=== PATIENT | male | born 1970 | race Caucasian/White ===

== ENCOUNTER 2021-05-13 15:43 | Inpatient (IN) ==
[2021-05-13] MEDS ORDERED: Naloxone 0.4 MG/ML INJ IVP PRN (17:03)
[2021-05-13] MEDS ORDERED: Ondansetron 4 MG/2 ML VIAL IVP PRN (17:03)
[2021-05-13] MEDS ORDERED: D5% in Water 1,000 ML IVC SCH ×2 (17:15→17:30)
[2021-05-13] MEDS: Piperacillin/Tazobactam 3.375 GM in 0.9 % Sodium Chloride Mini Bag 100 ML IVPB SCH (17:39)
[2021-05-13] MEDS ORDERED: 0.9 % Sodium Chloride 1,000 ML IVC ONE (17:45)
[2021-05-13] MEDS ORDERED: *HR* Heparin 5,000 UNIT/ML VIAL SQ SCH (18:45)
[2021-05-13 19:08] LABS: BUN/Creatinine Ratio 25 (6-26); Blood Urea Nitrogen 33 mg/dL (6-20); Calcium 7.7 mg/dL (8.6-10.3); Carbon Dioxide 15 mEq/L (23-29); Chloride 130 mEq/L (98-107); Glucose 280 mg/dL (70-105); Magnesium 1.9 mg/dL (1.6-2.6); Osmolality,Calculated 335 (280-300); Phosphorous 2.6 mg/dL (2.7-4.5); Potassium 3.1 mEq/L (3.5-5.1); Sodium 154 mEq/L (136-145); eGFR For African Americans > 60 (> 60); eGFR For Non-African Americans 57 (> 60)
[2021-05-13] MEDS ORDERED: Calcium Gluconate 1gm/50mL 1 GM/50 ML BAG IVPB ONE (20:01)
[2021-05-13] MEDS: D5% in Water 1,000 ML IVC SCH (20:12)
[2021-05-13] MEDS ORDERED: *HR* Atropine Sulfate 1 MG/10 ML SYRINGE IVP ONE (20:13)
[2021-05-13 22:46] LABS: Hematocrit 19.9 % (37.5-50.1); Immature Platelets 1.9 % (1.1-6.1); Mean Corpuscular HGB Conc 28.1 g/dL (31.6-35.5); Mean Corpuscular Hemoglobin 28.3 pg (28.0-33.3); Mean Corpuscular Volume 100.5 fL (83.0-100.0); Mean Platelet Volume 11.1 fL (9.4-12.4); Red Blood Count 1.98 M/mcL (4.19-5.50); Red Cell Distribution Width 15.2 % (11.5-14.5); White Blood Count 1.7 K/mcL (4.3-11.1)
[2021-05-13] MEDS ORDERED: Albumin 25% 25gram/100mL 25 GM/100 ML IV.SOLN IVPB ONE (22:51)
[2021-05-13] MEDS ORDERED: D5% in 0.45% NACL 1,000 ML IVC SCH (23:00)
[2021-05-13 23:10] LABS: Platelet Count 59 K/mcL (140-400)
[2021-05-13 23:12] LABS: Hemoglobin 5.6 g/dL (12.9-16.9)
[2021-05-13 23:19] LABS: Anisocytosis 1+ (Not Present); Hypochromasia Present (Not Present); Lymphocytes # 0.3 K/mcL (0.6-4.6); Neutrophils # 1.4 K/mcL (1.6-8.9); Platelet Estimate Decreased (Normal)
[2021-05-14 00:18] LABS: INR 1.6; Prothrombin Time 18.1 Seconds (9.4-12.1)
[2021-05-14 00:58] LABS: Albumin 2.4 g/dL (3.5-5.7); Albumin/Globulin Ratio 0.7 (1.1-2.2); Bilirubin,Direct 0.6 mg/dL (0.0-0.2); Bilirubin,Indirect 1.4 mg/dL (0.0-1.0); Globulin 3.6 g/dL (2.4-3.5); Thyroid Stimulating Hormone 0.424 mcIU/mL (0.340-5.600)
[2021-05-14] MEDS ORDERED: 0.9 % Sodium Chloride 250 ML ONE ×3 (01:00→12:32)
[2021-05-14] MEDS: Piperacillin/Tazobactam 3.375 GM in 0.9 % Sodium Chloride Mini Bag 100 ML IVPB SCH ×3 (03:41→20:17)
[2021-05-14 05:06] LABS: Hematocrit 22.4 % (37.5-50.1); Hemoglobin 6.5 g/dL (12.9-16.9); Immature Granulocytes % 0.8 % (0-4); Lymphocytes # 0.3 K/mcL (0.6-4.6); Lymphocytes % 12.1 %; Mean Corpuscular Hemoglobin 28.4 pg (28.0-33.3); Mean Corpuscular Volume 97.8 fL (83.0-100.0); Mean Platelet Volume 10.5 fL (9.4-12.4); Monocytes # 0.1 K/mcL (0.0-1.3); Monocytes % 2.3 %; Neutrophils # 2.2 K/mcL (1.6-8.9); Red Blood Count 2.29 M/mcL (4.19-5.50); Red Cell Distribution Width 14.6 % (11.5-14.5); Segmented Neutrophils % 84.8 %; White Blood Count 2.6 K/mcL (4.3-11.1)
[2021-05-14 05:07] LABS: Platelet Count 74 K/mcL (140-400)
[2021-05-14 05:27] LABS: BUN/Creatinine Ratio 25 (6-26); Blood Urea Nitrogen 30 mg/dL (6-20); Calcium 7.9 mg/dL (8.6-10.3); Carbon Dioxide 16 mEq/L (23-29); Chloride 134 mEq/L (98-107); Glucose 182 mg/dL (70-105); Iron 54 mcg/dL (65-175); Osmolality,Calculated 331 (280-300); Phosphorous 2.7 mg/dL (2.7-4.5); Potassium 4.1 mEq/L (3.5-5.1); Sodium 155 mEq/L (136-145); eGFR For African Americans > 60 (> 60); eGFR For Non-African Americans > 60 (> 60)
[2021-05-14 05:36] LABS: % Iron Saturation 35 % (20-55); Transferrin 109 mg/dL (203-362)
[2021-05-14 05:44] LABS: Ferritin 460 ng/mL (20-250)
[2021-05-14 05:54] LABS: Folate > 22.3 ng/mL (3.0-16.0); Vitamin B12 275 pg/mL (250-1100)
[2021-05-14] MEDS: Albumin 25% 25gram/100mL 25 GM/100 ML IV.SOLN IVPB SCH ×4 (08:19→23:10)
[2021-05-14] MEDS: Pantoprazole 40 MG VIAL IVP SCH ×2 (09:47→16:10)
[2021-05-14] MEDS: D5% in Water 1,000 ML IVC SCH ×2 (09:53→16:10)
[2021-05-14 10:10] LABS: Hemoglobin 6.8 g/dL (12.9-16.9)
[2021-05-14 10:12] LABS: Hematocrit 22.7 % (37.5-50.1); Immature Platelets 2.6 % (1.1-6.1); Mean Corpuscular Hemoglobin 28.7 pg (28.0-33.3); Mean Corpuscular Volume 95.8 fL (83.0-100.0); Mean Platelet Volume 10.7 fL (9.4-12.4); Red Blood Count 2.37 M/mcL (4.19-5.50); Red Cell Distribution Width 14.8 % (11.5-14.5); White Blood Count 2.6 K/mcL (4.3-11.1)
[2021-05-14] MEDS ORDERED: Lidocaine -MPF 2% 5 ML VIAL ONE (11:06)
[2021-05-14] MEDS ORDERED: Cyanocobalamin (B-12) 1,000 MCG/ML VIAL IM ONE (14:00)
[2021-05-14 16:53] LABS: Hemoglobin 6.6 g/dL (12.9-16.9); Mean Corpuscular Volume 96.9 fL (83.0-100.0); Red Cell Distribution Width 15.9 % (11.5-14.5)
[2021-05-14 16:55] LABS: Hematocrit 22.2 % (37.5-50.1); Immature Granulocytes % 1.4 % (0-4); Immature Platelets 2.7 % (1.1-6.1); Lymphocytes # 0.3 K/mcL (0.6-4.6); Lymphocytes % 11.8 %; Mean Corpuscular HGB Conc 29.7 g/dL (31.6-35.5); Mean Corpuscular Hemoglobin 28.8 pg (28.0-33.3); Mean Platelet Volume 10.2 fL (9.4-12.4); Monocytes # 0.1 K/mcL (0.0-1.3); Monocytes % 3.3 %; Neutrophils # 1.8 K/mcL (1.6-8.9); Nucleated Red Blood Cells 0.9 /100 WBC (0); Platelet Count 60 K/mcL (140-400); Red Blood Count 2.29 M/mcL (4.19-5.50); Segmented Neutrophils % 83.5 %; White Blood Count 2.1 K/mcL (4.3-11.1)
[2021-05-14] MEDS ORDERED: Lidocaine -MPF 1% 5 ML AMPUL INFILT ONE (18:02)
[2021-05-14] MEDS: Dexamethasone Sodium Phos/PF 10 MG/ML VIAL IVP SCH (20:16)
[2021-05-14 22:14] LABS: Hematocrit 26.5 % (37.5-50.1); Hemoglobin 8.1 g/dL (12.9-16.9); Immature Platelets 3.8 % (1.1-6.1); Mean Corpuscular HGB Conc 30.6 g/dL (31.6-35.5); Mean Corpuscular Hemoglobin 28.8 pg (28.0-33.3); Mean Corpuscular Volume 94.3 fL (83.0-100.0); Mean Platelet Volume 11.2 fL (9.4-12.4); Red Blood Count 2.81 M/mcL (4.19-5.50); White Blood Count 2.5 K/mcL (4.3-11.1)
[2021-05-15] MEDS: Dexamethasone Sodium Phos/PF 10 MG/ML VIAL IVP SCH ×4 (01:02→20:30)
[2021-05-15 03:06] LABS: BUN/Creatinine Ratio 28 (6-26); Blood Urea Nitrogen 30 mg/dL (6-20); Calcium 7.2 mg/dL (8.6-10.3); Carbon Dioxide 12 mEq/L (23-29); Chloride 122 mEq/L (98-107); Glucose 370 mg/dL (70-105); Osmolality,Calculated 317 (280-300); Potassium 3.5 mEq/L (3.5-5.1); Sodium 143 mEq/L (136-145); eGFR For African Americans > 60 (> 60); eGFR For Non-African Americans > 60 (> 60)
[2021-05-15 03:53] LABS: Hemoglobin 9.2 g/dL (12.9-16.9)
[2021-05-15 03:56] LABS: Hematocrit 30.1 % (37.5-50.1); Immature Granulocytes % 2.4 % (0-4); Immature Platelets 4.5 % (1.1-6.1); Lymphocytes # 0.3 K/mcL (0.6-4.6); Mean Corpuscular HGB Conc 30.6 g/dL (31.6-35.5); Mean Corpuscular Hemoglobin 28.6 pg (28.0-33.3); Mean Corpuscular Volume 93.5 fL (83.0-100.0); Mean Platelet Volume 11.5 fL (9.4-12.4); Monocytes # 0.1 K/mcL (0.0-1.3); Monocytes % 2.1 %; Neutrophils # 2.5 K/mcL (1.6-8.9); Red Blood Count 3.22 M/mcL (4.19-5.50); Segmented Neutrophils % 86.5 %; White Blood Count 2.9 K/mcL (4.3-11.1)
[2021-05-15 04:03] LABS: Platelet Count 68 K/mcL (140-400)
[2021-05-15 04:27] LABS: Alanine Aminotransferase 8 Units/L (7-52); Albumin 3.2 g/dL (3.5-5.7); Albumin/Globulin Ratio 1.1 (1.1-2.2); Alkaline Phosphatase 35 Units/L (34-104); Aspartate Amino Transferase 13 Units/L (13-39); BUN/Creatinine Ratio 30 (6-26); Bilirubin,Total 2.5 mg/dL (0.3-1.0); Blood Urea Nitrogen 33 mg/dL (6-20); Calcium 8.3 mg/dL (8.6-10.3); Carbon Dioxide 14 mEq/L (23-29); Chloride 129 mEq/L (98-107); Globulin 2.9 g/dL (2.4-3.5); Glucose 158 mg/dL (70-105); Osmolality,Calculated 325 (280-300); Phosphorous 3.5 mg/dL (2.7-4.5); Potassium 3.6 mEq/L (3.5-5.1); Sodium 152 mEq/L (136-145); Total Protein 6.1 g/dL (6.4-8.9); eGFR For African Americans > 60 (> 60); eGFR For Non-African Americans > 60 (> 60)
[2021-05-15] MEDS: Piperacillin/Tazobactam 3.375 GM in 0.9 % Sodium Chloride Mini Bag 100 ML IVPB SCH ×3 (04:41→20:29)
[2021-05-15] MEDS: Albumin 25% 25gram/100mL 25 GM/100 ML IV.SOLN IVPB SCH (06:02)
[2021-05-15] MEDS: Pantoprazole 40 MG VIAL IVP SCH ×2 (06:04→18:10)
[2021-05-15] MEDS ORDERED: Cyanocobalamin (B-12) 1,000 MCG/ML VIAL SQ ONE (09:58)
[2021-05-15] MEDS: D5% in Water 1,000 ML IVC SCH (12:56)
[2021-05-15 14:16] LABS: Hepatitis B Surface Antigen Nonreactive (Nonreactive)
[2021-05-15 14:48] LABS: Hepatitis B Core IgM Nonreactive (Nonreactive); Hepatitis C Virus Antibody Nonreactive (Nonreactive)
[2021-05-15 14:49] LABS: Hepatitis A Antibody IgM Nonreactive (Nonreactive)
[2021-05-15 17:57] LABS: Hematocrit 31.9 % (37.5-50.1); Immature Platelets 3.9 % (1.1-6.1); Mean Corpuscular HGB Conc 31.3 g/dL (31.6-35.5); Mean Corpuscular Volume 92.5 fL (83.0-100.0); Mean Platelet Volume 11.3 fL (9.4-12.4); Red Blood Count 3.45 M/mcL (4.19-5.50); Red Cell Distribution Width 15.3 % (11.5-14.5); White Blood Count 3.7 K/mcL (4.3-11.1)
[2021-05-16] MEDS: Dexamethasone Sodium Phos/PF 10 MG/ML VIAL IVP SCH ×4 (01:12→19:40)
[2021-05-16 03:40] LABS: Basophils % 0.3 %; Red Cell Distribution Width 15.6 % (11.5-14.5)
[2021-05-16 03:41] LABS: Hematocrit 32.3 % (37.5-50.1); Hemoglobin 10.1 g/dL (12.9-16.9); Immature Platelets 3.5 % (1.1-6.1); Mean Corpuscular HGB Conc 31.3 g/dL (31.6-35.5); Mean Corpuscular Hemoglobin 28.9 pg (28.0-33.3); Mean Corpuscular Volume 92.6 fL (83.0-100.0); Mean Platelet Volume 11.6 fL (9.4-12.4); Red Blood Count 3.49 M/mcL (4.19-5.50); Segmented Neutrophils % 84.6 %; White Blood Count 3.2 K/mcL (4.3-11.1)
[2021-05-16 03:42] LABS: Immature Granulocytes % 2.5 % (0-4); Lymphocytes # 0.4 K/mcL (0.6-4.6); Lymphocytes % 11.1 %; Monocytes # 0.1 K/mcL (0.0-1.3); Monocytes % 1.5 %; Neutrophils # 2.7 K/mcL (1.6-8.9); Nucleated Red Blood Cells 1.5 /100 WBC (0); Platelet Count 68 K/mcL (140-400)
[2021-05-16] MEDS: Pantoprazole 40 MG VIAL IVP SCH ×2 (04:41→17:39)
[2021-05-16] MEDS: Piperacillin/Tazobactam 3.375 GM in 0.9 % Sodium Chloride Mini Bag 100 ML IVPB SCH ×3 (04:42→21:58)
[2021-05-16 05:11] LABS: Alanine Aminotransferase 6 Units/L (7-52); Albumin/Globulin Ratio 1.1 (1.1-2.2); Alkaline Phosphatase 35 Units/L (34-104); Aspartate Amino Transferase 12 Units/L (13-39); BUN/Creatinine Ratio 31 (6-26); Bilirubin,Total 1.8 mg/dL (0.3-1.0); Blood Urea Nitrogen 37 mg/dL (6-20); Calcium 7.7 mg/dL (8.6-10.3); Carbon Dioxide 13 mEq/L (23-29); Chloride 113 mEq/L (98-107); Globulin 2.8 g/dL (2.4-3.5); Glucose 434 mg/dL (70-105); Magnesium 1.9 mg/dL (1.6-2.6); Osmolality,Calculated 311 (280-300); Phosphorous 3.8 mg/dL (2.7-4.5); Potassium 3.3 mEq/L (3.5-5.1); Sodium 137 mEq/L (136-145); Total Protein 5.8 g/dL (6.4-8.9); eGFR For African Americans > 60 (> 60); eGFR For Non-African Americans > 60 (> 60)
[2021-05-16] MEDS: D5% in Water 1,000 ML IVC SCH (06:03)
[2021-05-16] MEDS: Ringers Solution, Lactated 1,000 ML IVC SCH (17:39)
[2021-05-16] MEDS: Lactulose Oral Soln 20 GM/30 ML UDC PO SCH (19:45)
[2021-05-16] MEDS: ursodioL 300 MG CAPSULE PO SCH (21:57)
[2021-05-16] MEDS: Potassium Chloride Elixir 20 MEQ/15 ML UDC PO SCH (21:57)
[2021-05-16] MEDS ORDERED: *HR* FentaNYL (PF) 100 MCG/2 ML VIAL IVP ONE (23:58)
[2021-05-17] MEDS: Dexamethasone Sodium Phos/PF 10 MG/ML VIAL IVP SCH ×3 (02:19→14:40)
[2021-05-17] MEDS: Piperacillin/Tazobactam 3.375 GM in 0.9 % Sodium Chloride Mini Bag 100 ML IVPB SCH ×2 (04:56→13:18)
[2021-05-17] MEDS: Pantoprazole 40 MG VIAL IVP SCH ×2 (04:57→16:29)
[2021-05-17] MEDS: Nystatin POWDER 30 GM BOTTLE TP SCH ×3 (05:05→14:41)
[2021-05-17 05:13] LABS: Basophils % 0.3 %; Mean Corpuscular Hemoglobin 29.2 pg (28.0-33.3)
[2021-05-17 05:16] LABS: Hematocrit 34.6 % (37.5-50.1); Immature Granulocytes % 2.8 % (0-4); Immature Platelets 3.7 % (1.1-6.1); Lymphocytes # 0.4 K/mcL (0.6-4.6); Lymphocytes % 10.8 %; Mean Corpuscular HGB Conc 31.8 g/dL (31.6-35.5); Mean Corpuscular Volume 91.8 fL (83.0-100.0); Mean Platelet Volume 10.7 fL (9.4-12.4); Monocytes # 0.1 K/mcL (0.0-1.3); Monocytes % 2.2 %; Nucleated Red Blood Cells 1.9 /100 WBC (0); Red Blood Count 3.77 M/mcL (4.19-5.50); Segmented Neutrophils % 83.9 %; White Blood Count 3.6 K/mcL (4.3-11.1)
[2021-05-17 05:28] LABS: Alanine Aminotransferase 6 Units/L (7-52); Albumin 3.1 g/dL (3.5-5.7); Albumin/Globulin Ratio 1.1 (1.1-2.2); Alkaline Phosphatase 35 Units/L (34-104); Aspartate Amino Transferase 15 Units/L (13-39); BUN/Creatinine Ratio 33 (6-26); Bilirubin,Total 1.6 mg/dL (0.3-1.0); Blood Urea Nitrogen 41 mg/dL (6-20); Calcium 8.4 mg/dL (8.6-10.3); Carbon Dioxide 12 mEq/L (23-29); Chloride 121 mEq/L (98-107); Globulin 2.9 g/dL (2.4-3.5); Glucose 139 mg/dL (70-105); Osmolality,Calculated 310 (280-300); Platelet Count 80 K/mcL (140-400); Potassium 3.8 mEq/L (3.5-5.1); Sodium 144 mEq/L (136-145); eGFR For African Americans > 60 (> 60); eGFR For Non-African Americans > 60 (> 60)
[2021-05-17] MEDS: ursodioL 300 MG CAPSULE PO SCH (07:50)
[2021-05-17] MEDS: Potassium Chloride Elixir 20 MEQ/15 ML UDC PO SCH ×2 (07:51→16:29)
[2021-05-17] MEDS: Lactulose Oral Soln 20 GM/30 ML UDC PO SCH ×2 (07:54→14:40)
[2021-05-17] MEDS: Ringers Solution, Lactated 1,000 ML IVC SCH (07:55)
[2021-05-17] MEDS ORDERED: Mirtazapine 15 MG TABLET PO SCH (08:00)
[2021-05-17 20:01] VITALS: BP 129/78; PULSE 56; TEMP 97.5; O2SAT 100
== END 2021-05-17 21:51 | DRG 872 ==
LOC: 3NENU → SUATTDRO 18:11
PROVIDERS: ADMIT General Practice; ATTEND Internal Medicine

== ENCOUNTER 2021-06-01 06:26 | Inpatient (IN) ==
[2021-06-01] MEDS ORDERED: *HR* Dextrose 50 % in Water (Syg) 50 ML SYRINGE ONE (10:23)
[2021-06-01] MEDS ORDERED: D5% in Water 1,000 ML IVC ONE (10:24)
[2021-06-01] MEDS: Norepinephrine 4 MG/254 ML IV.SOLN IVC SCH ×3 (10:30→13:29)
[2021-06-01] MEDS: D5% in Water 1,000 ML IVC SCH ×2 (10:30→15:00)
[2021-06-01] MEDS ORDERED: 0.9 % Sodium Chloride 1,000 ML ONE (10:41)
[2021-06-01] MEDS ORDERED: FentaNYL (PF) 1,000 MCG/100 ML IV.SOLN IVC SCH (10:45)
[2021-06-01] MEDS ORDERED: Artificial Tears SOLN 15 ML BOTTLE BOTH EYES PRN (10:46)
[2021-06-01] MEDS ORDERED: *HR* Dextrose 50 % in Water (Syg) 50 ML SYRINGE IVP ONE (10:46)
[2021-06-01] MEDS ORDERED: *HR* Dextrose 50 % in Water (Syg) 50 ML SYRINGE IVP PRN (10:46)
[2021-06-01] MEDS ORDERED: Naloxone 0.4 MG/ML INJ IVP PRN (11:00)
[2021-06-01] MEDS ORDERED: Ringers Solution, Lactated 1,000 ML IVC ONE (11:00)
[2021-06-01] MEDS: Vasopressin 40 UNIT in D5% in Water 100 ML IVC SCH (11:00)
[2021-06-01 11:30] LABS: ABG Base Excess -17 mEq/L (-2 to 3); ABG HCO3 14 mEq/L (21-27); ABG Oxygen Saturation 98 % (95-98); ABG PCO2 54 mmHg (35-45); ABG PH 7.01 pH Units (7.32-7.45); ABG PO2 147 mmHg (85-104); ABG TCO2 15 mEq/L (20-26); Blood Gas Modality ASSIST CONTROL; Blood Gas VT 400 cc
[2021-06-01] MEDS: Artificial Tears SOLN 15 ML BOTTLE BOTH EYES SCH ×4 (12:14→23:07)
[2021-06-01] MEDS: Hydrocortisone Sodium Succ 100 MG/2 ML VIAL IVP SCH ×3 (12:14→23:06)
[2021-06-01] MEDS: Phenylephrine 50 MG in 0.9 % Sodium Chloride 250 ML IVC SCH ×3 (12:58→20:55)
[2021-06-01] MEDS: Sodium Bicarbonate 150 MEQ in D5% in Water 1,000 ML IVC SCH ×2 (13:01→18:54)
[2021-06-01 13:05] LABS: Nucleated Red Blood Cells 1.9 /100 WBC (0)
[2021-06-01 13:07] LABS: Basophils % 0.6 %; Hematocrit 41.6 % (37.5-50.1); Hemoglobin 11.3 g/dL (12.9-16.9); Immature Granulocytes % 29.7 % (0-4); Immature Platelets 4.5 % (1.1-6.1); Lymphocytes # 0.7 K/mcL (0.6-4.6); Mean Corpuscular HGB Conc 27.2 g/dL (31.6-35.5); Mean Corpuscular Hemoglobin 27.7 pg (28.0-33.3); Mean Platelet Volume 11.7 fL (9.4-12.4); Monocytes % 1.9 %; Neutrophils # 0.4 K/mcL (1.6-8.9); Red Blood Count 4.08 M/mcL (4.19-5.50); Red Cell Distribution Width 21.3 % (11.5-14.5); White Blood Count 1.6 K/mcL (4.3-11.1)
[2021-06-01] MEDS ORDERED: Norepinephrine 8 MG in 0.9 % Sodium Chloride 4 MG/250 ML IVBAG IVC SCH (13:30)
[2021-06-01 13:40] LABS: Anisocytosis 1+ (Not Present); Macrocytosis Present (Not Present); Polychromasia 1+ (Not Present)
[2021-06-01] MEDS ORDERED: Perflutren Lipid Microsphere 1.3 ML in 0.9 % Sodium Chloride 8.7 ML IVP PRN (13:40)
[2021-06-01 13:41] LABS: Platelet Estimate Decreased (Normal)
[2021-06-01 13:49] LABS: Platelet Count 64 K/mcL (140-400)
[2021-06-01 14:12] LABS: ABG Base Excess -13 mEq/L (-2 to 3); ABG HCO3 16 mEq/L (21-27); ABG Oxygen Saturation 90 % (95-98); ABG PCO2 44 mmHg (35-45); ABG PH 7.16 pH Units (7.32-7.45); ABG PO2 75 mmHg (85-104); ABG TCO2 17 mEq/L (20-26); Blood Gas Modality ASSIST CONTROL; Blood Gas VT 450 cc
[2021-06-01 15:13] LABS: ABG Ionized Calcium 1.04 mmol/L (1.15-1.35)
[2021-06-01 15:46] LABS: Albumin 1.8 g/dL (3.5-5.7); Albumin/Globulin Ratio 0.9 (1.1-2.2); Bilirubin,Total 2.4 mg/dL (0.3-1.0); Calcium 6.6 mg/dL (8.6-10.3); Globulin 2.1 g/dL (2.4-3.5); Magnesium 1.7 mg/dL (1.6-2.6); Potassium 3.7 mEq/L (3.5-5.1); Total Protein 3.9 g/dL (6.4-8.9)
[2021-06-01] MEDS: EPINEPHrine 5 MG in D5% in Water 250 ML IVC SCH ×2 (15:52→20:47)
[2021-06-01] MEDS ORDERED: Piperacillin/Tazobactam 3.375 GM in 0.9 % Sodium Chloride Mini Bag 100 ML IVPB SCH (16:00)
[2021-06-01] MEDS ORDERED: Norepinephrine 8 MG in 0.9 % Sodium Chloride 250 ML IVC SCH (17:45)
[2021-06-01] MEDS ORDERED: *HR* Etomidate 20 MG/10 ML AMPUL IVP ONE (18:00)
[2021-06-01] MEDS ORDERED: *HR* Succinylcholine 200 MG/10 ML VIAL IVP ONE (18:00)
[2021-06-01] MEDS ORDERED: *HR* Midazolam HCl 5 MG/5 ML VIAL IVP ONE (18:00)
[2021-06-01] MEDS: Norepinephrine 16 MG in 0.9 % Sodium Chloride 500 ML IVC SCH (19:47)
[2021-06-01] MEDS ORDERED: Chlorhexidine Rinse 15 ML MOUTHWASH MM SCH ×2 (21:00)
[2021-06-01 22:32] LABS: VBG Ionized Calcium 0.93 mmol/L (1.15-1.35)
[2021-06-01] MEDS ORDERED: Calcium Chloride 2,000 MG in 0.9 % Sodium Chloride 100 ML IVPB ONE (22:53)
[2021-06-01 22:54] LABS: Calcium 6.1 mg/dL (8.6-10.3); Magnesium 1.4 mg/dL (1.6-2.6); Phosphorous 6.3 mg/dL (2.7-4.5); Potassium 4.5 mEq/L (3.5-5.1)
[2021-06-01 23:11] VITALS: TEMP 98.4
[2021-06-02] MEDS: Phenylephrine 50 MG in 0.9 % Sodium Chloride 250 ML IVC SCH (00:33)
[2021-06-02] MEDS ORDERED: Ringers Solution, Lactated 1,000 ML IVC ONE (00:40)
[2021-06-02] MEDS ORDERED: Ringers Solution, Lactated 1,000 ML ONE (00:45)
[2021-06-02] MEDS: Norepinephrine 16 MG in 0.9 % Sodium Chloride 500 ML IVC SCH (00:46)
[2021-06-02 01:08] VITALS: BP 60/23; PULSE 93
[2021-06-02 01:09] LABS: ABG Base Excess -25 mEq/L (-2 to 3); ABG HCO3 9 mEq/L (21-27); ABG Oxygen Saturation 69 % (95-98); ABG PCO2 56 mmHg (35-45); ABG PH 6.81 pH Units (7.32-7.45); ABG PO2 65 mmHg (85-104); ABG TCO2 11 mEq/L (20-26); Blood Gas VT 450 cc
[2021-06-02] MEDS: EPINEPHrine 5 MG in D5% in Water 250 ML IVC SCH (01:29)
[2021-06-02] MEDS: Vasopressin 40 UNIT in D5% in Water 100 ML IVC SCH (01:30)
[2021-06-02 01:36] VITALS: O2SAT 87
[2021-06-02] MEDS ORDERED: *HR* Heparin 5,000 UNIT/ML VIAL SQ SCH (06:00)
[2021-06-02] MEDS ORDERED: Pantoprazole 40 MG VIAL IVP SCH (09:00)
== END 2021-06-02 02:14 | disposition expired | DRG 871 ==
LOC: ICNU
PROVIDERS: ADMIT Internal Medicine; ATTEND Internal Medicine